=== PATIENT | female | born 1965 | race Caucasian/White ===

== ENCOUNTER → 2017-08-22 | Outpatient (CLI) | payer BC ==
[~2017-08-22] MED LIST: CENTCHW4 CHEW; CLON0.1T PO; CLON1 PO; DILT240C44 PO; HYDR-3516 PO; VITA100021 SL; VITA50TA30 PO; ZOFR4TAB PO
--- NOTE | 2017-08-23 23:22 | EKG ---
Date Performed: 08/22/2017 Time Performed: 13:57:08 PTAGE: 52 years EKG: Sinus rhythm Short ME interval Possible inferior infarct - age undetermined Abnormal ECG NO PREVIOUS TRACING DOCTOR: Cricket Pace Interpretating Date/Time 08/23/2017 23:21:16
== END ==
LOC: CPRE 13:05
PROVIDERS: ATTEND Orthopaedic Surgery
DX: Z01.810 Encounter for preprocedural cardiovascular examination (principal); G56.20 Lesion of ulnar nerve, unspecified upper limb; R94.31 Abnormal electrocardiogram [ECG] [EKG]
CPT/HCPCS: 93005

== ENCOUNTER → 2017-08-30 | Day surgery (SDC) | payer BC ==
--- NOTE | 2017-08-29 12:53 | MH ---
cc: LUISAJEANMARIE DATE OF ADMISSION 08/30/2017 DATE OF 1965 ADMITTING DIAGNOSIS Ulnar nerve neuropathy right elbow. PROPOSED SURGERY Subcutaneous ulnar nerve transposition right elbow, neuroplasty ulnar nerve. PAST HISTORY She had a hysterectomy at age 18 because of endometriosis. She was on estrogen supplementation for close to 25-30 years. She has high blood pressure. She is on Diltiazem. She is on Clonazepam for anxiety. She takes Hydrocodone for pain as needed. She also has chronic neck pain and is being evaluated by a neurosurgeon including MRI and she was told that the right upper extremity symptoms are not related to the cervical spine. She has also had an EMG study done that shows ulnar nerve neuropathy of the right elbow. PERSONAL HISTORY She is a heavy smoker and so is her boyfriend. The patient has been counseled on smoking cessation and the great importance for that especially in the immediate postoperative period, but also on a long-term basis. She does not work. The dominant arm is left. PRESENT HISTORY She says she fell off a stool at a friend's house and hit her right elbow on July 06, 2016 followed by this problem, but it has not gotten better. It was initiated evaluated and treated in [place], [place] and then she saw Dr. Pollock in [place], [place]. EMG nerve conduction test showed obvious ulnar nerve neuropathy of the right elbow. She was going to have surgery in [place], but the insurance would not cover the surgeon and therefore she sought my care earlier this month. Preoperative work up shows some borderline changes in her iron metabolism and thyroid studies. Minimal elevation of CRP. The patient is being counseled on appropriate intake of vitamins especially B-vitamins, calcium and vitamin D etc. She has been given a copy of her lab tests to take to her primary care physician for eventual evaluation and possible thyroid supplementation. The diagnosis of ulnar nerve neuropathy and the procedure itself and the postoperative course and potential risks, hazards, complications, expected results have all been discussed with her. The patient is advised there is a possibility that we are worsening the situation, but most likely the surgery will significantly improve her condition. There is, however, no guarantee of complete recovery. I also told her that there may be a component of cervical radiculopathy especially giving rise to the atrophy of the first dorsal interosseous, and that will not get better with this surgery. Informed consent has been obtained. No guarantees made. PHYSICAL EXAM This is a short, slightly built white female who is awake, alert and oriented. She exhibits the effects of chronic smoking. She is, however, not short of breath and she has clear breath sounds. HEART: Heart sounds are regular with no murmurs. ABDOMEN: Soft and supple. EXTREMITIES: The right upper extremity reveals a very subtle claw hand and some weakness in the long flexors in the ulnar nerve distribution. There is obvious Tinel's sign and picketing of the median nerve behind the median epicondyle. Tinel's signs and Phalen's tests are negative at the wrist. She has some weakness of guitar player strength. Motor examination and sensory examination are somewhat diffuse with abnormalities and not really specific to the ulnar nerve, but there is a very strong diagnosis of ulnar nerve neuropathy at the right elbow on the UG and nerve conduction test. MD CLAUDIA Sunshine/MAE /12:15 PM /12:22 PM
[~2017-08-30] VITALS: Ht 149.9 cm; Wt 50.3 kg
[~2017-08-30] MED LIST changes: +ACETAMINOPHEN 1000 MG/100 ML 100 ML IV ONE; +ACETAMINOPHEN/HYDROcodone 325 MG/5 MG TAB PO PRN; +BUPIVACAINE HCL PF 0.5% 30 ML VIAL ONE; +CHLORHEXIDINE GLUCONATE 2 % 1 PACK (2 CLOTHS) TOPICAL PRN; +DEXAMETHASONE SOD PHOS 4 MG/ML VIAL IV ONE; +DEXAMETHASONE SOD PHOS PF 10 MG/ML VIAL ONE; +DEXMEDETOMIDINE HCL 200 MCG/2 ML VIAL ONE; +DO NOT ADM ANY ANTICOAGULANT DRUGS PRN; +GELFOAM SIZE 100 ONE; +GLYCOPYRROLATE 1 MG/5 ML SYRINGE IV PUSH ONE; +KETOROLAC TROMETHAMINE 30 MG/ML (IVP) VIAL IV PUSH ONE; +LACTATED RINGER'S 1000 ML INJ 1,000 ML IV SCH; +LACTATED RINGER'S 1000 ML IV PRN; +LIDOCAINE HCL 1% PF 5 ML SYRINGE OTHER ONE; +LIDOCAINE HCL 2% 50 ML VIAL ONE; +METOPROLOL TARTRATE 25 MG TAB PO PRN; +MIDAZOLAM HCL 2 MG/2 ML VIAL ONE; +MORPHINE SULFATE 2 MG/ML INJ IV PUSH PRN; +ONDANSETRON HCL 4 MG/2 ML VIAL IV PUSH ONE; +ONDANSETRON HCL 4 MG/2 ML VIAL IV PUSH PRN; +POVIDONE IODINE 5% (ANTISEPSIS KIT) 4 APPLICATIONS EACH NARE PRN; +POVIDONE IODINE 7.5% SCRUB 118 ML BOTTLE TOPICAL SCH; +PROPOFOL 200 MG/20 ML AMP IV ONE; +ROCURONIUM INJ 50 MG/5 ML SYRINGE IV PUSH ONE; +SODIUM CHLORID 0.9% 500 ML IV PRN; +ceFAZolin 2 GM PREMIX 50 ML IV SCH
--- NOTE | 2017-08-30 10:09 | MP ---
cc: JEANMARIE BOWLES DATE OF SURGERY 08/30/2017 DATE OF 1965 PREOPERATIVE DIAGNOSIS Ulnar nerve neuropathy, right elbow. POSTOPERATIVE DIAGNOSIS Ulnar nerve neuropathy, right elbow. OPERATIVE PROCEDURE 1. Neurolysis ulnar nerve, right elbow. 2. Ulnar nerve transposition. SURGEON Dr. Bowles. ANESTHESIA General. TECHNIQUE After induction of general anesthesia the right upper extremity was thoroughly prepped with Hibiclens and draped in routine fashion. We did not use a tourniquet. A medial incision was made about 5 cm distal to the medial epicondyle and about 10 cm proximal to it, deepened through subcutaneous tissue down to fascia. Care was taken to retain most of the fat on the anterior flap except for a little residual adherent to the medial epicondyle. The ulnar nerve was identified proximally first and carefully dissected. The prominent medial intermuscular septum was excised proximal to the medial epicondyle so as to prevent any abrasion of the nerve once transposed. Proximal release was carried out close to 7-8 cm. There was no other area of constriction there. The constriction was all behind the medial epicondyle. The nerve was quite thickened and is released from there. The fascia of the flexor origin was incised superficial to the nerve. The articular branch was cut but the branch of the flexor carpi ulnaris was preserved. As much release as possible was carried out so as to have transposition without tension. The nerve was then placed under the anterior flap, on the fascia, and 3-0 Vicryl sutures were placed between the underlying fat and the fascia and fat over the medial epicondyle and slightly proximal to it making sure there was no constriction of the nerve whatsoever. Once this was done subcutaneous tissue was closed with interrupted 2-0 Vicryl sutures. Skin was closed with 3-0 subcuticular Quill and Steri-Strips. Dressings were applied with 4x4's and Sof-Rol, and a posterior fiberglass splint was applied. The patient was transferred to the recovery room in satisfactory condition. The patient had good circulation when we finished and in the recovery room she has good function of the right hand. The patient tolerated the procedure well. TRANSFUSIONS AND COMPLICATIONS None. POSTOPERATIVE CONDITION Satisfactory. PROGNOSIS Guarded because there could still be an element of problem from the cervical spine. Also, the bigger factor is her smoking history and I will talk to her several times about cessation of smoking permanently but particularly in the next several weeks. I have also reminded her boyfriend about it because he also is a smoker. MD CLAUDIA Sunshine/SETH /9:25 AM /9:31 AM
[2017-08-30 11:02] VITALS: BP 110/73; PULSE 73; RESP 16; TEMP 97.4; O2SAT 97
== END | disposition home or self-care (01) ==
LOC: HSDC 05:33
PROVIDERS: ATTEND Orthopaedic Surgery
DX: G56.21 Lesion of ulnar nerve, right upper limb (principal)
CPT/HCPCS: 01710; 64718; J0131; J0690; J1100; J1885; J2250; J2405; J3010; J7120